=== PATIENT | male | born 1980 | race Caucasian/White ===

== ENCOUNTER → 2024-05-18 10:25 | Outpatient (BNVA) | payer BC, SELFPAY | PROVIDERS: Family Provider Nurse Practitioner; PCP Nurse Practitioner; Visit Provider Specialist | DX: M25.561 Pain in right knee (principal); M25.562 Pain in left knee; M17.0 Bilateral primary osteoarthritis of knee; G89.29 Other chronic pain | CPT/HCPCS: 73560; 73565 ==

== ENCOUNTER 2024-05-27 15:07 | Outpatient (CLI) | payer BC, SELFPAY ==
--- NOTE | 2024-05-27 15:30 | MR_ITS ---
WS: [id number] MRI RIGHT KNEE NONCONTRAST TECHNIQUE: Axial PD, coronal PD fat sat, coronal PD, sagittal PD, and sagittal PD fat-sat images obta ined. CLINICAL INFORMATION: knee pain COMPARISON: None. FINDINGS: Distal quadriceps and patella tendons are intact. ACL and PCL are intact. Mild chronic thinning of th e medial and lateral meniscus. No acute appearing meniscal tears. Grade II chondromalacia patella. Me dial and lateral patellar retinaculum appear intact. Medial and lateral collateral ligaments appear i ntact. Normal popliteal fossa. Hypertrophic changes along the joint line. No other acute findings. MR/MR knee RT wo con* [id number] IMPRESSION: 1. Distal quadriceps and patella tendons are intact. 2. ACL and PCL are intact. 3. Mild chronic thinning of the medial and lateral meniscus with moderate grad e II/III chondromalacia somewhat advanced for patient this age. No subchondral edema. Hypertrophic changes along the joint line. 4. Grade II chondromalacia patella. 5. Medial and lateral collateral ligaments appear intact. 6. No other acute findings. [facility] grading: grade III: partial-thickness cartilage loss with focal ulcer ation
== END 2024-05-27 15:08 | disposition home or self-care (01) ==
LOC: RAD 15:08
PROVIDERS: Family Provider Nurse Practitioner; PCP Nurse Practitioner; Visit Provider Specialist
DX: M22.41 Chondromalacia patellae, right knee (principal); M25.561 Pain in right knee
CPT/HCPCS: 73721